=== PATIENT | male | born 1940 | race Caucasian/White ===

== ENCOUNTER 2021-05-11 15:12 | Observation (INO) | payer MEDICARE ==
--- NOTE | 2021-05-11 15:27 | ERPHSYRPT ---
- History of Present Illness Time Seen by Provider: 05/11/21 15:55 Source: patient Physician History: Patient is a 81-year-old male presents to our ED for evaluations of acute loss of vision left eye. Symptoms started approximately 2 hours prior to arrival. Patient states last week he lost his hearing. Patient was evaluated and diagnosed with an ear infection. Patient was treated with antibiotics for an inner ear. Patient completed his antibiotic course. Patient has been experiencing a headache and dizziness. No chest pain or shortness of breath. No nausea vomiting or diaphoresis. No trauma. No fever. No neck pain. Symptoms are constant. Symptoms are moderate in intensity. No specific worsening improving factors. Patient voices no other complaints concerns at this time. Timing/Duration: today Severity: moderate Modifying Factors: Improves With: nothing Associated Symptoms: headaches, other (Dizziness, loss of hearing x1 week), No syncope, No seizure Allergies/Adverse Reactions: No Known Drug Allergies Allergy (Verified 05/11/21 15:29) Home Medications: Albuterol 2.5 mg/3 ml Neb [Proventil 2.5 mg/3 ml Neb] 1 puff QID 01/23/12 [History] Fluticasone/Salmeterol [Advair 100-50 Diskus] 1 each IH BID 01/24/12 [History] Ipratropium/Albuterol Sulfate [Combivent Respimat Common Canister] 1 puff IH BID 03/26/16 [History] Hx Tetanus, Diphtheria Vaccination/Date Given: Yes (UNKNOWN) Hx Influenza Vaccination/Date Given: Yes Hx Pneumococcal Vaccination/Date Given: No - Review of Systems Constitutional: No Symptoms, No Fever, No Chills Eyes: No Symptoms Ears, Nose, & Throat: No Symptoms Respiratory: No Symptoms, No Cough, No Dyspnea Cardiac: No Symptoms, No Chest Pain, No Edema, No Syncope Abdominal/Gastrointestinal: No Symptoms, No Abdominal Pain, No Nausea, No Vomiting, No Diarrhea Genitourinary Symptoms: No Symptoms, No Dysuria Musculoskeletal: No Symptoms, No Back Pain, No Neck Pain Skin: No Symptoms, No Rash Neurological: No Symptoms, No Dizziness, No Focal Weakness, No Sensory Changes Psychological: No Symptoms Endocrine: No Symptoms, Excessive Sweating Immunological/Allergic: No Symptoms All Other Systems: Reviewed and Negative - Past Medical History Pertinent Past Medical History: Yes Neurological History: No Pertinent History ENT History: Other Cardiac History: Aneurysm Respiratory History: COPD Endocrine Medical History: No Pertinent History Musculoskeletal History: No Pertinent History GI Medical History: No Pertinent History History: No Pertinent History Psycho-Social History: No Pertinent History Male Reproductive Disorders: Prostate Problems Other Medical History: abdominal anurysem - Past Surgical History Past Surgical History: Yes Neuro Surgical History: No Pertinent History Cardiac: No Pertinent History Respiratory: Other Gastrointestinal: No Pertinent History Genitourinary: Other Musculoskeletal: Orthopedic Surgery, Other Male Surgical History: No Pertinent History Other Surgical History: kidney stone removed, transposition of left ulnar nerve. rotator cuff repair of left shoulder; copd - Social History Smoking Status: Former smoker Exposure to second hand smoke: No Drug Use: none Patient Lives Alone: Yes - Nursing Vital Signs Nursing Vital Signs: Initial Vital Signs O2 Sat by Pulse Oximetry 97 05/11/21 15:48 Pain Scale Pain Intensity 0 - Physical Exam General Appearance: no apparent distress, alert Eye Exam: PERRL/EOMI, eyes nml inspection Ears, Nose, Throat Exam: normal ENT inspection, TMs normal, pharynx normal, moist mucous membranes Neck Exam: normal inspection, non-tender, supple, full range of motion Respiratory Exam: normal breath sounds, lungs clear, airway intact, No re spiratory distress Cardiovascular Exam: regular rate/rhythm, normal heart sounds, normal peripheral pulses Gastrointestinal/Abdomen Exam: soft, normal bowel sounds, No tenderness, No mass Back Exam: normal inspection, normal range of motion, No CVA tenderness, No vertebral tenderness Extremity Exam: normal inspection, normal range of motion, pelvis stable Neurologic Exam: alert, oriented x 3, cooperative, normal mood/affect, sensation nml, No motor deficits Skin Exam: normal color, warm, dry, No rash Lymphatic Exam: No adenopathy SpO2 Interpretation: normal SpO2: 97 O2 Delivery: Room Air - Course Nursing assessment & vital signs reviewed: Yes EKG Interpreted by Me: RATE (65), Sinus Rhythm, NORMAL AXIS, NORMAL INTERVALS - Radiology Exams Other X-ray Interpretation: Teleradiologist Report (CT angio neck:no comps. Right and mid left carotid bulb calcified plaques without critical stenosis or obstruction. Normal CTA vertebral arteries with dominant left vertebral artery. Osteopenia. Multilevel degenerative disc disease and emphysema.) - CT Exams Head CT Interpretation: Tele-radiologist Report (Negative CT head without contrast exam) Other CT Interpretation: Tele-radiologist Report (CT angio head. No comps. Mild scattered arteriosclerotic disease both ICA without critical stenosis obstruction or AV malformation. 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 Remaining CTA [place] of [place] negative) Ordered Tests: Active Orders 24 hr Category Date Time Status Mechanical Designer STAT Care 05/11/21 15:29 Active EKG-ER Only STAT Care 05/11/21 15:28 Active IV Insertion STAT Care 05/11/21 15:28 Active Pulse Oximetry (ED) STAT Care 05/11/21 15:28 Active Consult Neurology STAT Cons 05/11/21 16:[address] ANGIOGRAPHY NECK [CT] Stat Exams 05/11/21 16:41 Taken CTA HEAD W AND/OR WO CONTRAST [CT] Stat Exams 05/11/21 16:40 Taken HEAD WITHOUT CONTRAST [CT] Routine Exams 05/11/21 15:25 Completed CBC W DIFF Stat Lab 05/11/21 15:40 Completed CMP Stat Lab 05/11/21 15:40 Completed CULTURE,URINE Stat Lab 05/11/21 17:40 Received PROTIME WITH INR Stat Lab 05/11/21 15:40 Completed PTT Stat Lab 05/11/21 15:40 Completed TROPONIN Q3H Lab 05/11/21 15:40 Completed TROPONIN Q3H Lab 05/11/21 18:21 Completed TROPONIN Q3H Lab 05/11/21 21:30 Ordered TROPONIN Q3H Lab 05/12/21 00:30 Ordered TROPONIN Q3H Lab 05/12/21 03:30 Ordered Transfer Order Routine Transfer 05/11/21 Ordered Medication Summary Generic Name Dose Route Start Last Admin Trade Name Freq PRN Reason Stop Dose Admin Aspirin 324 mg 05/11/21 19:23 Aspirin 81 Mg Tab.Chew PO 05/11/21 19:24 STAT ONE Sodium Chloride 1,000 mls @ 100 mls/hr 05/11/21 15:30 05/11/21 15:36 Sodium Chloride 0.9% 1000 Ml IV 06/10/21 15:29 100 mls/hr .Q10H ROCAEL Administration Ceftriaxone Sodium/Dextrose 1 g in 50 mls @ 100 mls/hr 05/12/21 10:00 Rocephin 1 Gm-D5w 50 Ml Bag IV 05/15/21 09:59 Q24H10 ROCAEL Lab/Rad Data: Laboratory Result Diagrams 05/11/21 15:40 04/06/22 15:40 Laboratory Results 05/11/21 05/11/21 05/11/21 Range/Units 18:21 17:40 17:29 WBC (4.0-10.5) K/mm3 RBC (4.1-5.6) M/mm3 Hgb (12.5-18.0) gm/dl Hct (42-50) % MCV (78-100) fl MCH (26-32) pg MCHC (32-36) g/dl RDW (11.5-14.0) % Plt Count (150-450) K/mm3 MPV (7.5-11.0) fl Gran % (36.0-66.0) % Eos # (Auto) (0-0.5) Absolute Lymphs (auto) (1.0-4.6) Absolute Monos (auto) (0.0-1.3) Lymphocytes % (24.0-44.0) % Monocytes % (0.0-12.0) % Eosinophils % (0.00-5.0) % Basophils % (0.0-0.4) % Absolute Granulocytes (1.4-6.9) Basophils # (0-0.4) PT (9.4-12.5) SECONDS INR (0.8-3.0) APTT (25.1-36.5) SECONDS Sodium (137-145) mmol/L Potassium (3.5-5.1) mmol/L Chloride (98-107) mmol/L Carbon Dioxide (22-30) mmol/L Anion Gap (5-15) MEQ/L BUN (9-20) mg/dL Creatinine (0.66-1.25) mg/dL Estimated GFR ML/MIN Glucose (74-106) mg/dL Calcium (8.4-10.2) mg/dL Total Bilirubin (0.2-1.3) mg/dL AST (17-59) U/L ALT (0-50) U/L Alkaline Phosphatase (38-126) U/L Troponin I < 0.012 (0.000-0.034) ng/mL Serum Total Protein (6.3-8.2) g/dL Albumin (3.5-5.0) g/dL Urinalys Dipstick Clnc MAIN LAB Urine Color YELLOW (YELLOW) Urine Appearance CLEAR (CLEAR) Urine pH 6.5 (5-6) Ur Specific [place] 1.010 (1.005-1.025) POC Urine Protein Conf NEGATIVE (Negative) Urine Ketones NEGATIVE (NEGATIVE) Urine Nitrite POSITIVE (NEGATIVE) Urine Bilirubin NEGATIVE (NEGATIVE) Urine Urobilinogen 0.2 (0-1) mg/dL Urine Leukocytes TRACE (NEGATIVE) Urine WBC (Auto) 3-5 (0-5) /HPF Urine RBC (Auto) NONE SEEN (0-2) /HPF U Epithel Cells (Auto) RARE (FEW) /HPF Urine Bacteria (Auto) RARE (NEGATIVE) /HPF Urine RBC NEGATIVE (0-5) Sukhwinder/ul Ur Culture Indicated? YES Urine Glucose NEGATIVE (NEGATIVE) mg/dL Influenza Type A Ag NEGATIVE (NEGATIVE) Influenza Type B Ag NEGATIVE (NEGATIVE) RSV (PCR) NEGATIVE (Negative) SARS-CoV-2 (PCR) NEGATIVE (NEGATIVE) 05/11/21 05/11/21 05/11/21 Range/Units 15:40 15:40 15:40 WBC (4.0-10.5) K/mm3 RBC (4.1-5.6) M/mm3 Hgb (12.5-18.0) gm/dl Hct (42-50) % MCV (78-100) fl MCH (26-32) pg MCHC (32-36) g/dl RDW (11.5-14.0) % Plt Count (150-450) K/mm3 MPV (7.5-11.0) fl Gran % (36.0-66.0) % Eos # (Auto) (0-0.5) Absolute Lymphs (auto) (1.0-4.6) Absolute Monos (auto) (0.0-1.3) Lymphocytes % (24.0-44.0) % Monocytes % (0.0-12.0) % Eosinophils % (0.00-5.0) % Basophils % (0.0-0.4) % Absolute Granulocytes (1.4-6.9) Basophils # (0-0.4) PT 12.2 (9.4-12.5) SECONDS INR 1.03 (0.8-3.0) APTT 35.0 (25.1-36.5) SECONDS Sodium 139 (137-145) mmol/L Potassium 3.8 (3.5-5.1) mmol/L Chloride 104 (98-107) mmol/L Carbon Dioxide 24 (22-30) mmol/L Anion Gap 15.0 (5-15) MEQ/L BUN 16 (9-20) mg/dL Creatinine 0.71 (0.66-1.25) mg/dL Estimated GFR > 60.0 ML/MIN Glucose 80 (74-106) mg/dL Calcium 8.8 (8.4-10.2) mg/dL Total Bilirubin 0.60 (0.2-1.3) mg/dL AST 25 (17-59) U/L ALT 12 (0-50) U/L Alkaline Phosphatase 76 (38-126) U/L Troponin I < 0.012 (0.000-0.034) ng/mL Serum Total Protein 7.3 (6.3-8.2) g/dL Albumin 4.2 (3.5-5.0) g/dL Urinalys Dipstick Clnc Urine Color (YELLOW) Urine Appearance (CLEAR) Urine pH (5-6) Ur Specific [place] (1.005-1.025) POC Urine Protein Conf (Negative) Urine Ketones (NEGATIVE) Urine Nitrite (NEGATIVE) Urine Bilirubin (NEGATIVE) Urine Urobilinogen (0-1) mg/dL Urine Leukocytes (NEGATIVE) Urine WBC (Auto) (0-5) /HPF Urine RBC (Auto) (0-2) /HPF U Epithel Cells (Auto) (FEW) /HPF Urine Bacteria (Auto) (NEGATIVE) /HPF Urine RBC (0-5) Sukhwinder/ul Ur Culture Indicated? Urine Glucose (NEGATIVE) mg/dL Influenza Type A Ag (NEGATIVE) Influenza Type B Ag (NEGATIVE) RSV (PCR) (Negative) SARS-CoV-2 (PCR) (NEGATIVE) 05/11/21 Range/Units 15:40 WBC 7.7 (4.0-10.5) K/mm3 RBC 5.08 (4.1-5.6) M/mm3 Hgb 16.1 (12.5-18.0) gm/dl Hct 47.7 (42-50) % MCV 93.9 (78-100) fl MCH 31.7 (26-32) pg MCHC 33.8 (32-36) g/dl RDW 13.2 (11.5-14.0) % Plt Count 259 (150-450) K/mm3 MPV 8.6 (7.5-11.0) fl Gran % 66.7 H (36.0-66.0) % Eos # (Auto) 0.46 (0-0.5) Absolute Lymphs (auto) 1.42 (1.0-4.6) Absolute Monos (auto) 0.60 (0.0-1.3) Lymphocytes % 18.5 L (24.0-44.0) % Monocytes % 7.8 (0.0-12.0) % Eosinophils % 6.0 H (0.00-5.0) % Basophils % 1.0 (0.0-0.4) % Absolute Granulocytes 5.11 (1.4-6.9) Basophils # 0.08 (0-0.4) PT (9.4-12.5) SECONDS INR (0.8-3.0) APTT (25.1-36.5) SECONDS Sodium (137-145) mmol/L Potassium (3.5-5.1) mmol/L Chloride (98-107) mmol/L Carbon Dioxide (22-30) mmol/L Anion Gap (5-15) MEQ/L BUN (9-20) mg/dL Creatinine (0.66-1.25) mg/dL Estimated GFR ML/MIN Glucose (74-106) mg/dL Calcium (8.4-10.2) mg/dL Total Bilirubin (0.2-1.3) mg/dL AST (17-59) U/L ALT (0-50) U/L Alkaline Phosphatase (38-126) U/L Troponin I (0.000-0.034) ng/mL Serum Total Protein (6.3-8.2) g/dL Albumin (3.5-5.0) g/dL Urinalys Dipstick Clnc Urine Color (YELLOW) Urine Appearance (CLEAR) Urine pH (5-6) Ur Specific [place] (1.005-1.025) POC Urine Protein Conf (Negative) Urine Ketones (NEGATIVE) Urine Nitrite (NEGATIVE) Urine Bilirubin (NEGATIVE) Urine Urobilinogen (0-1) mg/dL Urine Leukocytes (NEGATIVE) Urine WBC (Auto) (0-5) /HPF Urine RBC (Auto) (0-2) /HPF U Epithel Cells (Auto) (FEW) /HPF Urine Bacteria (Auto) (NEGATIVE) /HPF Urine RBC (0-5) Sukhwinder/ul Ur Culture Indicated? Urine Glucose (NEGATIVE) mg/dL Influenza Type A Ag (NEGATIVE) Influenza Type B Ag (NEGATIVE) RSV (PCR) (Negative) SARS-CoV-2 (PCR) (NEGATIVE) - Progress Progress: improved Progress Note: Negative CT head without contrast exam. telemetry neurologist advised CTA head and neck. Family/patient declined TPA. 05/11/21 16:50 05/11/21 16:56 Discussed with : Trever Will see patient in: hospital (observation) Counseled pt/family regarding: lab results, diagnosis, rad results - Departure Departure Disposition: Transfer Clinical Impression: Stroke, Urinary tract infection, Osteopenia Condition: Stable Critical Care Time: No Referrals: CHRIS DAVIS MD [Primary Care Provider] - Follow up/PCP as directed
--- NOTE | 2021-05-11 15:34 | XRAY ---
Indication: Stroke like symptoms. Multiple contiguous axial images obtained through the head without contrast. Comparison: None Age-appropriate global atrophy. No acute intracranial hemorrhage, abnormal extra-axial fluid collection, or mass effect. Fourth ventricle is midline without hydrocephalus. Bony calvarium intact. Visualized paranasal sinuses and mastoid air cells are clear. Impression: Negative CT head without contrast exam.
[2021-05-11] MEDS: Sodium Chloride 0.9% 1000 ML 1,000 ML IV SCH ×2 (15:36→20:20)
[2021-05-11 15:50] LABS: Absolute Neutrophil Ct (ANC) 5.11 (1.4-6.9); Basophil (Absolute #) 0.08 (0-0.4); Eosinophil (Absolute #) 0.46 (0-0.5); Hematocrit 47.7 % (42-50); Hemoglobin 16.1 gm/dl (12.5-18.0); Lymphocyte (Absolute #) 1.42 (1.0-4.6); Lymphocytes % 18.5 % (24.0-44.0); Mean Cell Volume 93.9 fl (78-100); Mean Corpuscular Hemoglobin 31.7 pg (26-32); Mean Corpuscular Hgb Concent. 33.8 g/dl (32-36); Mean Platelet Volume 8.6 fl (7.5-11.0); Monocytes % 7.8 % (0.0-12.0); Neutrophil % 66.7 % (36.0-66.0); Platelet Count 259 K/mm3 (150-450); Red Blood Count 5.08 M/mm3 (4.1-5.6); Red Cell Distribution Width 13.2 % (11.5-14.0); White Blood Count 7.7 K/mm3 (4.0-10.5)
[2021-05-11 16:00] LABS: INR 1.03 (0.8-3.0); PROTIME 12.2 SECONDS (9.4-12.5)
[2021-05-11 16:07] LABS: ALBUMIN 4.2 g/dL (3.5-5.0); ALKALINE PHOSPHATASE 76 U/L (38-126); BLOOD UREA NITROGEN 16 mg/dL (9-20); CHLORIDE 104 mmol/L (98-107); Calcium 8.8 mg/dL (8.4-10.2); Carbon Dioxide 24 mmol/L (22-30); Creatinine 1 0.71 mg/dL (0.66-1.25); EST GLOMERULAR FILTRATION RATE > 60.0 ML/MIN; Glucose 80 mg/dL (74-106); Potassium 3.8 mmol/L (3.5-5.1); SGOT/AST 25 U/L (17-59); SGPT/ALT 12 U/L (0-50); SODIUM 139 mmol/L (137-145); Total Protein 7.3 g/dL (6.3-8.2)
[2021-05-11 17:56] LABS: Appearance CLEAR (CLEAR); Bilirubin NEGATIVE (NEGATIVE); Dipstick done @ ? MAIN LAB; Glucose NEGATIVE (NEGATIVE); Ketones NEGATIVE (NEGATIVE); Nitrite POSITIVE (NEGATIVE); Ph 6.5 (5-6); Protein,Urine Dip NEGATIVE (Negative); RBC NEGATIVE Ery/ul (0-5); Urobilinogen 0.2 mg/dL (0-1)
[2021-05-11 18:03] LABS: Bacteria RARE /HPF (NEGATIVE); Epithelial Cells RARE /HPF (FEW)
[2021-05-11 18:06] LABS: RBC NONE SEEN /HPF (0-2)
[2021-05-11 18:07] LABS: Urine Cultured Indicated? YES
[2021-05-11 18:23] LABS: INFLUENZA A NEGATIVE (NEGATIVE); INFLUENZA B NEGATIVE (NEGATIVE); RESPIRATORY SYNCTIAL VIRUS NEGATIVE (Negative); SARS-CoV-2 Xpert Express NEGATIVE (NEGATIVE)
[2021-05-11] MEDS ORDERED: BABY ASPIRIN 81 MG CHEW PO ONE (19:23)
[2021-05-11] MEDS ORDERED: MAALOX ES 30 ML UNIT DOSE PO PRN (20:05)
[2021-05-11] MEDS ORDERED: MILK OF MAGNESIA 30 ML PO PRN (20:05)
[2021-05-11] MEDS ORDERED: Zofran 4 MG/2 ML VIAL IV PRN (20:05)
[2021-05-11] MEDS ORDERED: TYLENOL 325 MG PO PRN (20:05)
[2021-05-11] MEDS ORDERED: Senokot-S Tablet PO PRN (20:05)
[2021-05-11] MEDS ORDERED: ECOTRIN 81 MG PO ONE ×3 (21:34→21:52)
--- NOTE | 2021-05-11 21:40 | PCM.HP ---
History of Present Illness - Chief Complaint Chief Complaint: weakness for 1 day, loss of vision left eye History of Present Illness: is a 81 year old male.presents to our ED for evaluations of acute loss of vision left eye. Symptoms started approximately 2 hours prior to arrival. Patient states last week he lost his hearing. Patient was evaluated and diagnosed with an ear infection. Patient was treated with antibiotics for an inner ear. Patient completed his antibiotic course. Patient has been experiencing a headache and dizziness. No chest pain or shortness of breath. No nausea vomiting or diaphoresis. No trauma. No fever. No neck pain. Symptoms are constant. Symptoms are moderate in intensity. No specific worsening improving factors. Patient voices no other complaints concerns at this time. - Review of Systems Constitutional: Weakness, No Fever, No Chills Eyes: No Symptoms, Vision Changes (left eye) Ears, Nose, & Throat: No Symptoms, Hearing Changes Respiratory: No Cough, No Short Of Breath Cardiac: No Chest Pain, No Edema, No Syncope Abdominal/Gastrointestinal: No Abdominal Pain, No Nausea, No Vomiting, No Diarrhea Genitourinary Symptoms: No Dysuria Musculoskeletal: No Back Pain, No Neck Pain Skin: No Rash Neurological: No Dizziness, No Focal Weakness, No Sensory Changes Psychological: No Symptoms Endocrine: No Symptoms Hematologic/Lymphatic: No Symptoms Immunological/Allergic: No Symptoms Medications & Allergies Home Medications: Home Medication List Albuterol 2.5 mg/3 ml Neb [Proventil 2.5 mg/3 ml Neb] 1 puff QID 01/23/12 [History Confirmed 05/11/21] Fluticasone/Salmeterol [Advair 100-50 Diskus] 1 each IH BID 01/24/12 [History Confirmed 05/11/21] Ipratropium/Albuterol Sulfate [Combivent Respimat Common Canister] 1 puff IH BID 03/26/16 [History Confirmed 05/11/21] Allergies/Adverse Reactions: Allergies Allergy/AdvReac Type Severity Reaction Status Date / Time No Known Drug Allergies Allergy Verified 05/11/21 15:29 - Past Medical History Past Medical History: Yes Neurological History: Stroke ENT History: Cataracts, Other Cardiac History: Aneurysm Respiratory History: COPD Endocrine Medical History: No Pertinent History Musculoskelatal History: Arthritis, Fractures GI Medical History: No Pertinent History History: No Pertinent History, Other Pyscho-Social History: No Pertinent History Male Reproductive Disorders: Prostate Problems Comment: abdominal anurysem - Past Surgical History Past Surgical History: Yes Neuro Surgical History: No Pertinent History Cardiac History: No Pertinent History Respiratory Surgery: No Pertinent History GI Surgical History: No Pertinent History Genitourinary Surgical Hx: Other Musculskeletal Surgical Hx: Orthopedic Surgery, Other Male Surgical History: No Pertinent History Other Surgical History: kidney stone removed, transposition of left ulnar nerve. rotator cuff repair of left shoulder; copd - Social History Smoking Status: Former smoker Exposure to second hand smoke: No Alcohol: Daily Drug Use: none - Physical Exam Vital Signs: Vital Signs - 24 hr Temp Pulse Resp BP Pulse Ox 05/11/21 20:26 97.7 F 54 L 16 188/87 97 05/11/21 19:24 97 05/11/21 19:00 60 14 182/87 98 05/11/21 18:48 65 22 178/92 96 05/11/21 16:47 74 17 198/105 98 05/11/21 15:53 71 16 180/60 97 05/11/21 15:48 97 General Appearance: no apparent distress, alert Neurologic Exam: alert, oriented x 3, cooperative, normal mood/affect, nml cerebellar function, nml station & gait, sensation nml, No motor deficits Eye Exam: PERRL/EOMI, eyes nml inspection, post op pupil defect (L) Ears, Nose, Throat Exam: normal ENT inspection, TMs normal, pharynx normal, moist mucous membranes Neck Exam: normal inspection, non-tender, supple, full range of motion Respiratory Exam: normal breath sounds, lungs clear, No respiratory distress Cardiovascular Exam: regular rate/rhythm, normal heart sounds, normal peripheral pulses Gastrointestinal/Abdomen Exam: soft, normal bowel sounds, No tenderness, No mass Back Exam: normal inspection, normal range of motion, No CVA tenderness, No vertebral tenderness Extremity Exam: normal inspection, normal range of motion, pelvis stable Skin Exam: normal color, warm, dry, No rash Lymphatic Exam: No adenopathy Results - Labs Lab/Micro Results: Lab Results-Last 24 Hours 05/11/21 05/11/21 05/11/21 Range/Units 15:40 15:40 15:40 WBC 7.7 (4.0-10.5) K/mm3 RBC 5.08 (4.1-5.6) M/mm3 Hgb 16.1 (12.5-18.0) gm/dl Hct 47.7 (42-50) % MCV 93.9 (78-100) fl MCH 31.7 (26-32) pg MCHC 33.8 (32-36) g/dl RDW 13.2 (11.5-14.0) % Plt Count 259 (150-450) K/mm3 MPV 8.6 (7.5-11.0) fl Gran % 66.7 H (36.0-66.0) % Eos # (Auto) 0.46 (0-0.5) Absolute Lymphs (auto) 1.42 (1.0-4.6) Absolute Monos (auto) 0.60 (0.0-1.3) Lymphocytes % 18.5 L (24.0-44.0) % Monocytes % 7.8 (0.0-12.0) % Eosinophils % 6.0 H (0.00-5.0) % Basophils % 1.0 (0.0-0.4) % Absolute Granulocytes 5.11 (1.4-6.9) Basophils # 0.08 (0-0.4) PT 12.2 (9.4-12.5) SECONDS INR 1.03 (0.8-3.0) APTT 35.0 (25.1-36.5) SECONDS Sodium 139 (137-145) mmol/L Potassium 3.8 (3.5-5.1) mmol/L Chloride 104 (98-107) mmol/L Carbon Dioxide 24 (22-30) mmol/L Anion Gap 15.0 (5-15) MEQ/L BUN 16 (9-20) mg/dL Creatinine 0.71 (0.66-1.25) mg/dL Estimated GFR > 60.0 ML/MIN Glucose 80 (74-106) mg/dL Calcium 8.8 (8.4-10.2) mg/dL Total Bilirubin 0.60 (0.2-1.3) mg/dL AST 25 (17-59) U/L ALT 12 (0-50) U/L Alkaline Phosphatase 76 (38-126) U/L Troponin I (0.000-0.034) ng/mL Serum Total Protein 7.3 (6.3-8.2) g/dL Albumin 4.2 (3.5-5.0) g/dL Urinalys Dipstick Clnc Urine Color (YELLOW) Urine Appearance (CLEAR) Urine pH (5-6) Ur Specific [place] (1.005-1.025) POC Urine Protein Conf (Negative) Urine Ketones (NEGATIVE) Urine Nitrite (NEGATIVE) Urine Bilirubin (NEGATIVE) Urine Urobilinogen (0-1) mg/dL Urine Leukocytes (NEGATIVE) Urine WBC (Auto) (0-5) /HPF Urine RBC (Auto) (0-2) /HPF U Epithel Cells (Auto) (FEW) /HPF Urine Bacteria (Auto) (NEGATIVE) /HPF Urine RBC (0-5) Sukhwinder/ul Ur Culture Indicated? Urine Glucose (NEGATIVE) mg/dL Influenza Type A Ag (NEGATIVE) Influenza Type B Ag (NEGATIVE) RSV (PCR) (Negative) SARS-CoV-2 (PCR) (NEGATIVE) 05/11/21 05/11/21 05/11/21 Range/Units 15:40 17:29 17:40 WBC (4.0-10.5) K/mm3 RBC (4.1-5.6) M/mm3 Hgb (12.5-18.0) gm/dl Hct (42-50) % MCV (78-100) fl MCH (26-32) pg MCHC (32-36) g/dl RDW (11.5-14.0) % Plt Count (150-450) K/mm3 MPV (7.5-11.0) fl Gran % (36.0-66.0) % Eos # (Auto) (0-0.5) Absolute Lymphs (auto) (1.0-4.6) Absolute Monos (auto) (0.0-1.3) Lymphocytes % (24.0-44.0) % Monocytes % (0.0-12.0) % Eosinophils % (0.00-5.0) % Basophils % (0.0-0.4) % Absolute Granulocytes (1.4-6.9) Basophils # (0-0.4) PT (9.4-12.5) SECONDS INR (0.8-3.0) APTT (25.1-36.5) SECONDS Sodium (137-145) mmol/L Potassium (3.5-5.1) mmol/L Chloride (98-107) mmol/L Carbon Dioxide (22-30) mmol/L Anion Gap (5-15) MEQ/L BUN (9-20) mg/dL Creatinine (0.66-1.25) mg/dL Estimated GFR ML/MIN Glucose (74-106) mg/dL Calcium (8.4-10.2) mg/dL Total Bilirubin (0.2-1.3) mg/dL AST (17-59) U/L ALT (0-50) U/L Alkaline Phosphatase (38-126) U/L Troponin I < 0.012 (0.000-0.034) ng/mL Serum Total Protein (6.3-8.2) g/dL Albumin (3.5-5.0) g/dL Urinalys Dipstick Clnc MAIN LAB Urine Color YELLOW (YELLOW) Urine Appearance CLEAR (CLEAR) Urine pH 6.5 (5-6) Ur Specific [place] 1.010 (1.005-1.025) POC Urine Protein Conf NEGATIVE (Negative) Urine Ketones NEGATIVE (NEGATIVE) Urine Nitrite POSITIVE (NEGATIVE) Urine Bilirubin NEGATIVE (NEGATIVE) Urine Urobilinogen 0.2 (0-1) mg/dL Urine Leukocytes TRACE (NEGATIVE) Urine WBC (Auto) 3-5 (0-5) /HPF Urine RBC (Auto) NONE SEEN (0-2) /HPF U Epithel Cells (Auto) RARE (FEW) /HPF Urine Bacteria (Auto) RARE (NEGATIVE) /HPF Urine RBC NEGATIVE (0-5) Sukhwinder/ul Ur Culture Indicated? YES Urine Glucose NEGATIVE (NEGATIVE) mg/dL Influenza Type A Ag NEGATIVE (NEGATIVE) Influenza Type B Ag NEGATIVE (NEGATIVE) RSV (PCR) NEGATIVE (Negative) SARS-CoV-2 (PCR) NEGATIVE (NEGATIVE) 05/11/21 Range/Units 18:21 WBC (4.0-10.5) K/mm3 RBC (4.1-5.6) M/mm3 Hgb (12.5-18.0) gm/dl Hct (42-50) % MCV (78-100) fl MCH (26-32) pg MCHC (32-36) g/dl RDW (11.5-14.0) % Plt Count (150-450) K/mm3 MPV (7.5-11.0) fl Gran % (36.0-66.0) % Eos # (Auto) (0-0.5) Absolute Lymphs (auto) (1.0-4.6) Absolute Monos (auto) (0.0-1.3) Lymphocytes % (24.0-44.0) % Monocytes % (0.0-12.0) % Eosinophils % (0.00-5.0) % Basophils % (0.0-0.4) % Absolute Granulocytes (1.4-6.9) Basophils # (0-0.4) PT (9.4-12.5) SECONDS INR (0.8-3.0) APTT (25.1-36.5) SECONDS Sodium (137-145) mmol/L Potassium (3.5-5.1) mmol/L Chloride (98-107) mmol/L Carbon Dioxide (22-30) mmol/L Anion Gap (5-15) MEQ/L BUN (9-20) mg/dL Creatinine (0.66-1.25) mg/dL Estimated GFR ML/MIN Glucose (74-106) mg/dL Calcium (8.4-10.2) mg/dL Total Bilirubin (0.2-1.3) mg/dL AST (17-59) U/L ALT (0-50) U/L Alkaline Phosphatase (38-126) U/L Troponin I < 0.012 (0.000-0.034) ng/mL Serum Total Protein (6.3-8.2) g/dL Albumin (3.5-5.0) g/dL Urinalys Dipstick Clnc Urine Color (YELLOW) Urine Appearance (CLEAR) Urine pH (5-6) Ur Specific [place] (1.005-1.025) POC Urine Protein Conf (Negative) Urine Ketones (NEGATIVE) Urine Nitrite (NEGATIVE) Urine Bilirubin (NEGATIVE) Urine Urobilinogen (0-1) mg/dL Urine Leukocytes (NEGATIVE) Urine WBC (Auto) (0-5) /HPF Urine RBC (Auto) (0-2) /HPF U Epithel Cells (Auto) (FEW) /HPF Urine Bacteria (Auto) (NEGATIVE) /HPF Urine RBC (0-5) Sukhwinder/ul Ur Culture Indicated? Urine Glucose (NEGATIVE) mg/dL Influenza Type A Ag (NEGATIVE) Influenza Type B Ag (NEGATIVE) RSV (PCR) (Negative) SARS-CoV-2 (PCR) (NEGATIVE) - Radiology Impressions Radiology Exams & Impressions: Radiology Procedures Category Date Time Status CT ANGIOGRAPHY NECK [CT] Stat Exams 05/11/21 16:41 Taken CTA HEAD W AND/OR WO CONTRAST [CT] Stat Exams 05/11/21 16:40 Taken HEAD WITHOUT CONTRAST [CT] Routine Exams 05/11/21 15:25 Completed - Other Procedures and Tests Respiratory Therapy 05/11/21 20:05 EKG Q8HX2,QAMX3,PRN Assessment/Plan (1) Vision loss, left eye Current Visit: Yes Status: Acute Assessment & Plan: Chief Complaint Diagnosis Stroke Allergies Allergy/AdvReac Type Severity Reaction Status Date / Time No Known Drug Allergies Allergy Verified 05/11/21 15:29 Vital Signs (Last 24 hours) Temp Pulse Resp BP Pulse Ox 05/11/21 20:26 97.7 F 54 L 16 188/87 97 05/11/21 19:24 97 05/11/21 19:00 60 14 182/87 98 05/11/21 18:48 65 22 178/92 96 05/11/21 16:47 74 17 198/105 98 05/11/21 15:53 71 16 180/60 97 05/11/21 15:48 97 Current Medications Generic Name Dose Route Start Last Admin Trade Name Freq PRN Reason Stop Dose Admin Acetaminophen 650 mg 05/11/21 20:05 Acetaminophen 325 Mg Tablet PO 06/10/21 20:04 Q4H PRN PRN PAIN AND/OR FEVER Al Hydrox/Mg Hydrox/Simethicone 30 ml 05/11/21 20:05 Mag Hydrox/Al Hydrox/Simeth 30 Ml Udcup PO 06/10/21 20:04 Q4H PRN PRN INDIGESTION Sodium Chloride 1,000 mls @ 100 mls/hr 05/11/21 15:30 05/11/21 20:20 Sodium Chloride 0.9% 1000 Ml IV 06/10/21 15:29 100 mls/hr .Q10H ROCAEL Administration Ceftriaxone Sodium/Dextrose 1 g in 50 mls @ 100 mls/hr 05/12/21 10:00 Rocephin 1 Gm-D5w 50 Ml Bag IV 05/15/21 09:59 Q24H10 ROCAEL Magnesium Hydroxide 30 - 60 ml 05/11/21 20:05 Magnesium Hydroxide 30 Ml Udcup PO 06/10/21 20:04 QDP PRN CONSTIPATION Ondansetron HCl 4 mg 05/11/21 20:05 Ondansetron Hcl 4 Mg/2 Ml Vial IV 06/10/21 20:04 Q4H PRN PRN NAUSEA/VOMITING Senna/Docusate Sodium 2 udtab 05/11/21 20:05 Senna/Docusate Sodium 1 Udtab Tablet PO 06/10/21 20:04 BID PRN PRN CONSTIPATION Discontinued Medications Generic Name Dose Route Start Last Admin Trade Name Freq PRN Reason Stop Dose Admin Aspirin 324 mg 05/11/21 19:23 Aspirin 81 Mg Tab.Chew PO 05/11/21 19:24 STAT ONE Aspirin Confirm 05/11/21 21:34 Aspirin 81 Mg Tablet.Ec Administered 05/11/21 21:35 Dose 243 mg PO .STK-MED ONE Intake & Output (Last 24 hours) 05/09/21 05/10/21 05/11/21 05/12/21 11:59 11:59 11:59 11:59 Weight 60.6 kg Microbiology Results (Last 24 hours) 05/11/21 17:40 Urine, Void Urine Culture - Pending Laboratory Results (Last 24 hours) 05/11/21 05/11/21 05/11/21 18:21 17:40 17:29 WBC RBC Hgb Hct MCV MCH MCHC RDW Plt Count MPV Gran % Eos # (Auto) Absolute Lymphs (auto) Absolute Monos (auto) Lymphocytes % Monocytes % Eosinophils % Basophils % Absolute Granulocytes Basophils # PT INR APTT Sodium Potassium Chloride Carbon Dioxide Anion Gap BUN Creatinine Estimated GFR Glucose Calcium Total Bilirubin AST ALT Alkaline Phosphatase Troponin I < 0.012 Serum Total Protein Albumin Urinalys Dipstick Clnc MAIN LAB Urine Color YELLOW Urine Appearance CLEAR Urine pH 6.5 Ur Specific [place] 1.010 POC Urine Protein Conf NEGATIVE Urine Ketones NEGATIVE Urine Nitrite POSITIVE Urine Bilirubin NEGATIVE Urine Urobilinogen 0.2 Urine Leukocytes TRACE Urine WBC (Auto) 3-5 Urine RBC (Auto) NONE SEEN U Epithel Cells (Auto) RARE Urine Bacteria (Auto) RARE Urine RBC NEGATIVE Ur Culture Indicated? YES Urine Glucose NEGATIVE Influenza Type A Ag NEGATIVE Influenza Type B Ag NEGATIVE RSV (PCR) NEGATIVE SARS-CoV-2 (PCR) NEGATIVE 05/11/21 05/11/21 05/11/21 15:40 15:40 15:40 WBC RBC Hgb Hct MCV MCH MCHC RDW Plt Count MPV Gran % Eos # (Auto) Absolute Lymphs (auto) Absolute Monos (auto) Lymphocytes % Monocytes % Eosinophils % Basophils % Absolute Granulocytes Basophils # PT 12.2 INR 1.03 APTT 35.0 Sodium 139 Potassium 3.8 Chloride 104 Carbon Dioxide 24 Anion Gap 15.0 BUN 16 Creatinine 0.71 Estimated GFR > 60.0 Glucose 80 Calcium 8.8 Total Bilirubin 0.60 AST 25 ALT 12 Alkaline Phosphatase 76 Troponin I < 0.012 Serum Total Protein 7.3 Albumin 4.2 Urinalys Dipstick Clnc Urine Color Urine Appearance Urine pH Ur Specific [place] POC Urine Protein Conf Urine Ketones Urine Nitrite Urine Bilirubin Urine Urobilinogen Urine Leukocytes Urine WBC (Auto) Urine RBC (Auto) U Epithel Cells (Auto) Urine Bacteria (Auto) Urine RBC Ur Culture Indicated? Urine Glucose Influenza Type A Ag Influenza Type B Ag RSV (PCR) SARS-CoV-2 (PCR) 05/11/21 15:40 WBC 7.7 RBC 5.08 Hgb 16.1 Hct 47.7 MCV 93.9 MCH 31.7 MCHC 33.8 RDW 13.2 Plt Count 259 MPV 8.6 Gran % 66.7 H Eos # (Auto) 0.46 Absolute Lymphs (auto) 1.42 Absolute Monos (auto) 0.60 Lymphocytes % 18.5 L Monocytes % 7.8 Eosinophils % 6.0 H Basophils % 1.0 Absolute Granulocytes 5.11 Basophils # 0.08 PT INR APTT Sodium Potassium Chloride Carbon Dioxide Anion Gap BUN Creatinine Estimated GFR Glucose Calcium Total Bilirubin AST ALT Alkaline Phosphatase Troponin I Serum Total Protein Albumin Urinalys Dipstick Clnc Urine Color Urine Appearance Urine pH Ur Specific [place] POC Urine Protein Conf Urine Ketones Urine Nitrite Urine Bilirubin Urine Urobilinogen Urine Leukocytes Urine WBC (Auto) Urine RBC (Auto) U Epithel Cells (Auto) Urine Bacteria (Auto) Urine RBC Ur Culture Indicated? Urine Glucose Influenza Type A Ag Influenza Type B Ag RSV (PCR) SARS-CoV-2 (PCR) Orders (Last 24 hours) Category Date Time Status Bedrest with BRP/BSC ROUTINE Activity 05/11/21 20:05 Active Test Carrier STAT Care 05/11/21 15:29 Completed Code Status Order ROUTINE Care 05/11/21 20:05 Active EKG-ER Only STAT Care 05/11/21 15:28 Completed IV Care Q6H Care 05/11/21 20:05 Active IV Insertion STAT Care 05/11/21 15:28 Completed Implement Chest Pain Pathway ROUTINE Care 05/11/21 20:[address] in Observation ROUTINE Care 05/11/21 20:05 Active Pulse Oximetry (ED) STAT Care 05/11/21 15:28 Completed Micheal Serrato Apply ROUTINE Care 05/11/21 20:05 Active Telemetry q6 Care 05/11/21 20:05 Active Weight,Daily 0600 Care 05/11/21 20:05 Active Consult Neurology STAT Cons 05/11/21 16:51 Completed NPO Diet 05/12/21 00:[address] ANGIOGRAPHY NECK [CT] Stat Exams 05/11/21 16:41 Taken CTA HEAD W AND/OR WO CONTRAST [CT] Stat Exams 05/11/21 16:40 Taken HEAD WITHOUT CONTRAST [CT] Routine Exams 05/11/21 15:25 Completed BMP Routine Lab 05/11/21 20:59 Ordered CBC Routine Lab 05/11/21 20:59 Ordered CBC W DIFF Stat Lab 05/11/21 15:40 Completed CMP Stat Lab 05/11/21 15:40 Completed CULTURE,URINE Stat Lab 05/11/21 17:40 Received LIPID PROFILE AM.LAB Lab 05/12/21 04:00 Ordered PREALBUMIN Routine Lab 05/11/21 20:59 Ordered PROTIME WITH INR Stat Lab 05/11/21 15:40 Completed PTT Stat Lab 05/11/21 15:40 Completed TROPONIN Q3H Lab 05/11/21 15:40 Completed TROPONIN Q3H Lab 05/11/21 18:21 Completed TROPONIN Q3H Lab 05/11/21 21:30 Ordered TROPONIN Q3H Lab 05/12/21 00:30 Ordered TROPONIN Q3H Lab 05/12/21 03:30 Ordered Acetaminophen 325 mg [Tylenol 325 mg] Med 05/11/21 20:05 Ordered 650 mg PO Q4H PRN PRN Aspirin 81 gm Chew [Baby Aspirin 81 mg Chew] Med 05/11/21 19:23 Discontinued 324 mg PO STAT ONE Aspirin EC 81 mg [Ecotrin 81 mg] Med 05/11/21 21:34 Discontinued 243 mg PO .STK-MED ONE Ceftriaxone 1 GM/50 ML PREMIX* [ROCEPHIN 1 Gm-D5w 50 ml Med 05/12/21 10:00 Ordered Bag] 1 g in 50 ml IV Q24H10 Mag Hydrox/Al Hydrox/Simeth [Maalox Es 30 ml Unit Med 05/11/21 20:05 Ordered Dose] 30 ml PO Q4H PRN PRN Magnesium Hydroxide 30 ml [Milk of Magnesia 30 ml Med 05/11/21 20:05 Ordered ] 30 - 60 ml PO QDP PRN NaCl 0.9% 1000 ml [Sodium Chloride 0.9% 1000 ML] 1,000 Med 05/11/21 15:30 Ordered ml IV 100 mls/hr Ondansetron HCl 4 mg/2 ml [Zofran 4 MG/2 ML VIAL] Med 05/11/21 20:05 Ordered 4 mg IV Q4H PRN PRN Senna/Docusate Sodium Tab [Senokot-S Tablet] Med 05/11/21 20:05 Ordered 2 udtab PO BID PRN PRN EKG Q8HX2,QAMX3,PRN RT 05/11/21 20:05 Active Pulse Oximetry Q4H RT 05/11/21 20:05 Active Transfer Order Routine Transfer 05/11/21 Completed Code(s): H54.62 - UNQUALIFIED VISUAL LOSS, LEFT EYE, NORMAL VISION RIGHT EYE (2) TIA (transient ischemic attack) Current Visit: Yes Status: Acute Code(s): G45.9 - TRANSIENT CEREBRAL ISCHEMIC ATTACK, UNSPECIFIED
[2021-05-11] MEDS ORDERED: ROCEPHIN 1 Gm-D5w 50 ml Bag** 1 G/50 ML IVPB IV ONE (21:56)
[2021-05-12] MEDS ORDERED: Sodium Chloride 0.9% 1000 ML 1,000 ML ONE (03:53)
[2021-05-12] MEDS: Sodium Chloride 0.9% 1000 ML 1,000 ML IV SCH (03:53)
[2021-05-12] MEDS ORDERED: PROVENTIL 2.5 MG/3 ML NEB IH ONE (04:57)
[2021-05-12 05:06] LABS: Hematocrit 41.7 % (42-50); Hemoglobin 13.9 gm/dl (12.5-18.0); Mean Cell Volume 95.6 fl (78-100); Mean Corpuscular Hemoglobin 31.9 pg (26-32); Mean Corpuscular Hgb Concent. 33.3 g/dl (32-36); Mean Platelet Volume 8.6 fl (7.5-11.0); Platelet Count 215 K/mm3 (150-450); Red Blood Count 4.36 M/mm3 (4.1-5.6); White Blood Count 5.8 K/mm3 (4.0-10.5)
[2021-05-12 05:36] LABS: BLOOD UREA NITROGEN 14 mg/dL (9-20); CHLORIDE 106 mmol/L (98-107); Calcium 7.8 mg/dL (8.4-10.2); Carbon Dioxide 25 mmol/L (22-30); EST GLOMERULAR FILTRATION RATE > 60.0 ML/MIN; Glucose 80 mg/dL (74-106); PREALBUMIN 20.51 mg/dL (17.6-36.0); Potassium 3.8 mmol/L (3.5-5.1); SODIUM 136 mmol/L (137-145)
[2021-05-12 05:38] LABS: Risk Ratio 3.6
[2021-05-12] MEDS ORDERED: PATIENT OWN MEDICATION IH SCH ×3 (07:00→19:00)
[2021-05-12] MEDS ORDERED: PROVENTIL 2.5 MG/3 ML NEB IH SCH ×2 (07:00→10:00)
[2021-05-12] MEDS ORDERED: Advair Hfa 115/21 Common canister IH SCH (07:00)
[2021-05-12] MEDS ORDERED: PROVENTIL 2.5 MG/3 ML NEB IH PRN (07:03)
--- NOTE | 2021-05-12 08:42 | XRAY ---
Indication: Stroke. Left vision loss. Conventional contrast enhanced CTA neck performed using 80 cc Isovue 370 contrast. 2D sagittal and coronal reformatted images obtained. Additional 3-D reformatted images obtained using separate workstation. Comparison: None Visualized aortic arch is mildly arteriosclerotic with normal branching right brachiocephalic, left common carotid, and left subclavian arteries. Minimal eccentric calcifications in the right brachiocephalic and left subclavian arteries without critical stenosis/obstruction. Examination of the right carotid circulation demonstrates widely patent common carotid artery. Carotid bulb demonstrates minimal calcified plaquing. Origin external carotid artery demonstrates focal soft plaquing producing 80-90% stenosis. Distal internal carotid artery demonstrates minimal calcified plaquing. Examination of the left carotid circulation demonstrates widely patent common carotid artery. Carotid bulb demonstrates mild calcified plaquing. Extending into the origin/proximal internal carotid artery and lesser degree origin external carotid artery. Vertebral arteries are normal in CTA appearance. Left vertebral artery is slightly larger in caliber. Visualized soft tissues demonstrates a few tiny cervical lymph nodes. No pathologic lymphadenopathy. Thyroid gland enhances homogeneously. Supra/infra glottic airway widely patent. Lung apices demonstrates pulmonary emphysema. Osseous structures intact with osteopenia and mild/moderate multilevel cervical thoracic degenerative changes. Patient is edentulous. Impression: 1. Scattered arteriosclerotic plaquing bilaterally. Greatest extent origin right external carotid artery producing 80-90% stenosis. 2. Normal CTA vertebral arteries with dominant left vertebral artery. 3. Osteopenia, multilevel degenerative spondylosis, and pulmonary emphysema.
--- NOTE | 2021-05-12 08:46 | XRAY ---
Indication: Stroke. Left vision loss. Conventional contrast enhanced CTA head performed using 80 cc Isovue 370 contrast. 2D sagittal and coronal reformatted images obtained. Additional 3-D reformatted images obtained using separate workstation. Comparison: None Distal internal carotid arteries are bilaterally symmetric with mild scattered arteriosclerotic calcifications in both parasellar segments without critical stenosis/obstruction. Normal carotid terminus with normal branching A1 and M1 segments bilaterally. More distal anterior cerebral, middle cerebral, anterior communicating, and right posterior communicating arteries are normal in CTA appearance. Anatomic variant for origin left posterior cerebral artery. Basilar artery, right posterior cerebral, and left/right superior cerebellar arteries are normal in CTA appearance. No abnormal enhancing intra-or extra-axial mass. Venous sinuses and drainage unremarkable. Impression: Mild scattered arteriosclerotic calcifications both distal internal carotid arteries without critical stenosis/obstruction. Anatomic variant origin left posterior cerebral artery. Remaining CTA brain with contrast exam is negative.
[2021-05-12] MEDS ORDERED: ROCEPHIN 1 Gm-D5w 50 ml Bag** 1 G/50 ML IVPB IV SCH (10:00)
[2021-05-12] MEDS ORDERED: PLAVIX 75 MG Tablet PO SCH (14:00)
[2021-05-12] MEDS ORDERED: ECOTRIN 81 MG PO SCH (14:00)
--- NOTE | 2021-05-12 14:58 | XRAY ---
Indication: Stroke. Sagittal, coronal, and axial MRI brain performed without contrast using T1, T2, FLAIR, diffusion, and ADC sequences. Comparison: None Age-appropriate global atrophy and mild periventricular degenerative micro-ischemia signal bilaterally. Medial right occipital lobe demonstrates 2.0 x 2.1 cm focus of restricted signal favoring acute ischemia. Remaining diffusion images unremarkable. No acute intracranial hemorrhage, abnormal extra-axial fluid collection, or mass effect. Fourth ventricle is midline without hydrocephalus. 7/8 cranial nerve complex bilaterally symmetric. Normal flow-void signal within the major intracerebral circulation. Normal-appearing craniocervical junction and sella turcica. Paranasal sinuses are clear. Impression: 1. Small focus acute ischemia right occipital lobe. No acute hemorrhage/mass effect. 2. Atrophy and degenerative micro-ischemia within normal limits for patient's age.
[2021-05-12 15:40] VITALS: BP 184/86; PULSE 62; O2SAT 97
--- NOTE | 2021-05-12 17:22 | PCM.DS ---
Discharge Summary Date of Admission: 05/11/21 20:01 Admitting Physician: CHRIS DAVIS Consults: Consults on Case 05/11/21 16:51 Consult Neurology STAT 05/12/21 15:13 Consult Tele-Health [Tele-Health Consult] ROUTINE Primary Care Provider: CHRIS DAVIS Allergies Allergies No Known Drug Allergies Allergy (Verified 05/11/21 15:29) Hospital Summary - Hospital Course Hospital Course: Chief Complaint Diagnosis weakness for 1 day, loss of vision left eye Allergies Allergy/AdvReac Type Severity Reaction Status Date / Time No Known Drug Allergies Allergy Verified 05/11/21 15:29 Vital Signs (Last 24 hours) Temp Pulse Resp BP Pulse Ox 05/12/21 15:40 98.7 F 62 16 184/86 97 05/12/21 11:45 98.4 F 63 16 166/72 96 05/12/21 10:30 65 20 95 05/12/21 07:10 97.8 F 54 L 16 159/74 98 05/12/21 05:20 57 L 20 97 05/12/21 04:00 98.0 F 55 L 14 150/72 99 05/12/21 00:00 97.8 F 56 L 18 159/75 99 05/11/21 21:54 63 16 95 05/11/21 20:26 97.7 F 54 L 16 188/87 97 05/11/21 19:24 97 05/11/21 19:00 60 14 182/87 98 05/11/21 18:48 65 22 178/92 96 Home Medications Medication Instructions Recorded Confirmed Last Taken Type Aspirin EC 81 mg [Ecotrin 81 81 mg PO DAILY 30 Days #30 tab 05/12/21 Unknown Rx mg] Atorvastatin Calcium [Lipitor] 10 mg PO HS 30 Days #30 tablet 05/12/21 Unknown Rx Clopidogrel Bisulfate 75 mg 75 mg PO DAILY 30 Days #30 tablet 05/12/21 Unknown Rx [PLAVIX 75 MG Tablet] Lisinopril 10 mg [Zestril 10 10 mg PO HS 30 Days #30 tablet 05/12/21 Unknown Rx MG] Current Medications Generic Name Dose Route Start Last Admin Trade Name Freq PRN Reason Stop Dose Admin Acetaminophen 650 mg 05/11/21 20:05 Acetaminophen 325 Mg Tablet PO 06/10/21 20:04 Q4H PRN PRN PAIN AND/OR FEVER Al Hydrox/Mg Hydrox/Simethicone 30 ml 05/11/21 20:05 Mag Hydrox/Al Hydrox/Simeth 30 Ml Udcup PO 06/10/21 20:04 Q4H PRN PRN INDIGESTION Albuterol Sulfate 2.5 mg 05/12/21 07:03 Albuterol Sulfate 2.5 Mg/3 Ml Neb IH 06/11/21 07:01 Q4H PRN PRN SHORTNESS OF BREATH/WHEEZING Aspirin 81 mg 05/12/21 14:00 05/12/21 13:42 Aspirin 81 Mg Tablet.Ec PO 06/11/21 13:59 81 mg DAILY ROCAEL Administration Clopidogrel Bisulfate 75 mg 05/12/21 14:00 05/12/21 13:42 Clopidogrel Bisulfate 75 Mg Tablet PO 06/11/21 13:59 75 mg DAILY ROCAEL Administration Sodium Chloride 1,000 mls @ 100 mls/hr 05/11/21 15:30 05/12/21 03:53 Sodium Chloride 0.9% 1000 Ml IV 06/10/21 15:29 100 mls/hr .Q10H ROCAEL Administration Ceftriaxone Sodium/Dextrose 1 g in 50 mls @ 100 mls/hr 05/12/21 10:00 05/11/21 22:02 Rocephin 1 Gm-D5w 50 Ml Bag IV 05/15/21 09:59 100 mls/hr Q24H10 ROCAEL Administration Lisinopril 10 mg 05/12/21 22:00 Lisinopril 10 Mg Tablet PO 06/11/21 21:59 HS ROCAEL Magnesium Hydroxide 30 - 60 ml 05/11/21 20:05 Magnesium Hydroxide 30 Ml Udcup PO 06/10/21 20:04 QDP PRN CONSTIPATION Ondansetron HCl 4 mg 05/11/21 20:05 Ondansetron Hcl 4 Mg/2 Ml Vial IV 06/10/21 20:04 Q4H PRN PRN NAUSEA/VOMITING Combivent Respimat 1 each 05/12/21 19:00 Inhaler 06/11/21 18:59 BIDRT ROCAEL Fluticasone/Salmeterol 2 puff 05/12/21 07:00 05/12/21 05:23 Fluticasone/Salmeterol 115/21 - 120 Puff Common Canister 06/11/21 06:59 2 puff BIDRT ROCAEL Administration Senna/Docusate Sodium 2 udtab 05/11/21 20:05 Senna/Docusate Sodium 1 Udtab Tablet PO 06/10/21 20:04 BID PRN PRN CONSTIPATION Discontinued Medications Generic Name Dose Route Start Last Admin Trade Name Freq PRN Reason Stop Dose Admin Albuterol Sulfate 2.5 mg 05/12/21 07:00 Albuterol Sulfate 2.5 Mg/3 Ml [facility] 06/11/21 06:59 QIDRT ROCAEL Albuterol Sulfate Confirm 05/12/21 04:57 Albuterol Sulfate 2.5 Mg/3 Ml Neb Administered 05/12/21 04:58 Dose 2.5 mg IH .STK-MED ONE Albuterol Sulfate 2.5 mg 05/12/21 10:00 05/12/21 05:25 Albuterol Sulfate 2.5 Mg/3 Ml [facility] 06/11/21 09:59 2.5 mg BID ROCAEL Administration Aspirin 324 mg 05/11/21 19:23 05/12/21 10:59 Aspirin 81 Mg Tab.Chew PO 05/11/21 19:24 Not Given STAT ONE Aspirin Confirm 05/11/21 21:34 Aspirin 81 Mg Tablet.Ec Administered 05/11/21 21:35 Dose 243 mg PO .STK-MED ONE Aspirin Confirm 05/11/21 21:44 Aspirin 81 Mg Tablet.Ec Administered 05/11/21 21:45 Dose 81 mg PO .STK-MED ONE Aspirin 324 mg 05/11/21 21:52 05/11/21 21:59 Aspirin 81 Mg Tablet.Ec PO 05/11/21 21:53 324 mg 1XONLY ONE Administration Ceftriaxone Sodium/Dextrose Confirm 05/11/21 21:56 Rocephin 1 Gm-D5w 50 Ml Bag Administered 05/11/21 21:57 Dose 1 g in 50 mls @ ud IV .STK-MED ONE Sodium Chloride Confirm 05/12/21 03:53 Sodium Chloride 0.9% 1000 Ml Administered 05/12/21 03:54 Dose 1,000 mls @ ud .ROUTE .STK-MED ONE Combivent Respimat 1 each 05/12/21 10:00 05/12/21 10:59 20/100 IH 06/11/21 09:59 Not Given BID ROCAEL Intake & Output (Last 24 hours) 05/10/21 05/11/21 05/12/21 05/13/21 11:59 11:59 11:59 11:59 Intake Total 480 240 Balance 480 240 Weight 61 kg Microbiology Results (Last 24 hours) 05/11/21 17:40 Urine, Void Urine Culture - Pending Laboratory Results (Last 24 hours) 05/12/21 05/12/21 05/12/21 04:30 04:30 04:30 WBC 5.8 RBC 4.36 Hgb 13.9 Hct 41.7 L MCV 95.6 MCH 31.9 MCHC 33.3 RDW 13.0 Plt Count 215 MPV 8.6 Sodium 136 L Potassium 3.8 Chloride 106 Carbon Dioxide 25 Anion Gap 8.0 BUN 14 Creatinine 0.70 Estimated GFR > 60.0 Glucose 80 Calcium 7.8 L Troponin I Prealbumin 20.51 Triglycerides 67 Cholesterol 156 LDL Cholesterol 111 H HDL Cholesterol 43 Heart Disease Risk Ratio 3.6 Urinalys Dipstick Clnc Urine Color Urine Appearance Urine pH Ur Specific [place] POC Urine Protein Conf Urine Ketones Urine Nitrite Urine Bilirubin Urine Urobilinogen Urine Leukocytes Urine WBC (Auto) Urine RBC (Auto) U Epithel Cells (Auto) Urine Bacteria (Auto) Urine RBC Ur Culture Indicated? Urine Glucose Influenza Type A Ag Influenza Type B Ag RSV (PCR) SARS-CoV-2 (PCR) 05/11/21 05/11/21 05/11/21 21:40 18:21 17:40 WBC RBC Hgb Hct MCV MCH MCHC RDW Plt Count MPV Sodium Potassium Chloride Carbon Dioxide Anion Gap BUN Creatinine Estimated GFR Glucose Calcium Troponin I < 0.012 < 0.012 Prealbumin Triglycerides Cholesterol LDL Cholesterol HDL Cholesterol Heart Disease Risk Ratio Urinalys Dipstick Clnc MAIN LAB Urine Color YELLOW Urine Appearance CLEAR Urine pH 6.5 Ur Specific [place] 1.010 POC Urine Protein Conf NEGATIVE Urine Ketones NEGATIVE Urine Nitrite POSITIVE Urine Bilirubin NEGATIVE Urine Urobilinogen 0.2 Urine Leukocytes TRACE Urine WBC (Auto) 3-5 Urine RBC (Auto) NONE SEEN U Epithel Cells (Auto) RARE Urine Bacteria (Auto) RARE Urine RBC NEGATIVE Ur Culture Indicated? YES Urine Glucose NEGATIVE Influenza Type A Ag Influenza Type B Ag RSV (PCR) SARS-CoV-2 (PCR) 05/11/21 17:29 WBC RBC Hgb Hct MCV MCH MCHC RDW Plt Count MPV Sodium Potassium Chloride Carbon Dioxide Anion Gap BUN Creatinine Estimated GFR Glucose Calcium Troponin I Prealbumin Triglycerides Cholesterol LDL Cholesterol HDL Cholesterol Heart Disease Risk Ratio Urinalys Dipstick Clnc Urine Color Urine Appearance Urine pH Ur Specific [place] POC Urine Protein Conf Urine Ketones Urine Nitrite Urine Bilirubin Urine Urobilinogen Urine Leukocytes Urine WBC (Auto) Urine RBC (Auto) U Epithel Cells (Auto) Urine Bacteria (Auto) Urine RBC Ur Culture Indicated? Urine Glucose Influenza Type A Ag NEGATIVE Influenza Type B Ag NEGATIVE RSV (PCR) NEGATIVE SARS-CoV-2 (PCR) NEGATIVE Orders (Last 24 hours) Category Date Time Status Bedrest with BRP/BSC ROUTINE Activity 05/11/21 20:05 Active Code Status Order ROUTINE Care 05/11/21 20:05 Active IV Care Q6H Care 05/11/21 20:05 Active Implement Chest Pain Pathway ROUTINE Care 05/11/21 20:[address] in Observation ROUTINE Care 05/11/21 20:05 Active Micheal Serrato Apply ROUTINE Care 05/11/21 20:05 Active Telemetry q6h Care 05/11/21 20:05 Active Weight,Daily 0600 Care 05/11/21 20:05 Active Consult Neurology STAT Cons 05/11/21 16:51 Completed Consult Tele-Health [Tele-Health Consult] ROUTINE Cons 05/12/21 15:13 Active Heart-Healthy Diet Diet 05/12/21 Breakfast Active NPO Diet 05/12/21 00:01 Completed Discharge Routine Discharge 05/12/21 15:[address] ANGIOGRAPHY NECK [CT] Stat Exams 05/11/21 16:41 Completed CTA HEAD W AND/OR WO CONTRAST [CT] Stat Exams 05/11/21 16:40 Completed MRI BRAIN W/O CONTRAST [MRI] Urgent Exams 05/12/21 08:40 Completed BMP Routine Lab 05/11/21 20:59 Completed CBC Routine Lab 05/11/21 20:59 Completed CULTURE,URINE Stat Lab 05/11/21 17:40 Received LIPID PROFILE AM.LAB Lab 05/12/21 04:30 Completed PREALBUMIN Routine Lab 05/11/21 20:59 Completed TROPONIN Q3H Lab 05/11/21 18:21 Completed TROPONIN Q3H Lab 05/11/21 21:40 Completed Acetaminophen 325 mg [Tylenol 325 mg] Med 05/11/21 20:05 Active 650 mg PO Q4H PRN PRN Albuterol 2.5 mg/3 ml Neb [Proventil 2.5 mg/3 ml Neb Med 05/12/21 04:57 Discontinued ] 2.5 mg IH .STK-MED ONE Albuterol 2.5 mg/3 ml Neb [Proventil 2.5 mg/3 ml Neb Med 05/12/21 10:00 Discontinued ] 2.5 mg IH BID Albuterol 2.5 mg/3 ml Neb [Proventil 2.5 mg/3 ml Neb Med 05/12/21 07:03 Active ] 2.5 mg IH Q4H PRN PRN Albuterol 2.5 mg/3 ml Neb [Proventil 2.5 mg/3 ml Neb Med 05/12/21 07:00 Discontinued ] 2.5 mg IH QIDRT Aspirin 81 gm Chew [Baby Aspirin 81 mg Chew] Med 05/11/21 19:23 Discontinued 324 mg PO STAT ONE Aspirin EC 81 mg [Ecotrin 81 mg] Med 05/11/21 21:34 Discontinued 243 mg PO .STK-MED ONE Aspirin EC 81 mg [Ecotrin 81 mg] Med 05/11/21 21:52 Discontinued 324 mg PO 1XONLY ONE Aspirin EC 81 mg [Ecotrin 81 mg] Med 05/11/21 21:44 Discontinued 81 mg PO .STK-MED ONE Aspirin EC 81 mg [Ecotrin 81 mg] Med 05/12/21 14:00 Active 81 mg PO DAILY Ceftriaxone 1 GM/50 ML PREMIX* [ROCEPHIN 1 Gm-D5w 50 ml Med 05/12/21 10:00 Active Bag] 1 g in 50 ml IV Q24H10 Ceftriaxone 1 GM/50 ML PREMIX* [ROCEPHIN 1 Gm-D5w 50 ml Med 05/11/21 21:56 Discontinued Bag] 1 g in 50 ml IV UD Clopidogrel Bisulfate 75 mg [PLAVIX 75 MG Tablet] Med 05/12/21 14:00 Active 75 mg PO DAILY Fluticasone/Salmeterol 115/21 [Advair Hfa 115/21 Common Med 05/12/21 07:00 Active canister*] 2 puff IH BIDRT Lisinopril 10 mg [Zestril 10 MG] Med 05/12/21 22:00 Active 10 mg PO HS Mag Hydrox/Al Hydrox/Simeth [Maalox Es 30 ml Unit Med 05/11/21 20:05 Active Dose] 30 ml PO Q4H PRN PRN Magnesium Hydroxide 30 ml [Milk of Magnesia 30 ml Med 05/11/21 20:05 Active ] 30 - 60 ml PO QDP PRN NaCl 0.9% 1000 ml [Sodium Chloride 0.9% 1000 ML] 1,000 Med 05/12/21 03:53 Discontinued ml .ROUTE UD Ondansetron HCl 4 mg/2 ml [Zofran 4 MG/2 ML VIAL] Med 05/11/21 20:05 Active 4 mg IV Q4H PRN PRN Patient Own Med [Patient Own Medication] Med 05/12/21 10:00 Discontinued 1 each IH BID Patient Own Med [Patient Own Medication] Med 05/12/21 19:00 Active 1 each IH BIDRT Senna/Docusate Sodium Tab [Senokot-S Tablet] Med 05/11/21 20:05 Active 2 udtab PO BID PRN PRN Bardy 7-14 Day Holter ONCE RT 05/12/21 16:49 Completed EKG Q8HX2,QAMX3,PRN RT 05/11/21 20:05 Completed EKG ROUTINE RT 05/11/21 23:30 Completed EKG ROUTINE RT 05/12/21 05:00 Completed EKG ROUTINE RT 05/13/21 05:00 Active EKG ROUTINE RT 05/14/21 05:00 Active Oxygen Nasal Cannula 2 lpm RT 05/11/21 21:53 Active Pulse Oximetry .spot check RT 05/11/21 21:54 Active Pulse Oximetry Q4H RT 05/11/21 20:05 Completed Respiratory MDI UD RT 05/11/21 21:53 Active Respiratory MDI UD RT 05/12/21 04:06 Completed Respiratory Therapy Assessment DAILY RT 05/11/21 21:53 Active Patient Care Notes (Last 24 hours) 05/12/21 15:30 (created 05/12/21 15:45) Nursing Note by Kassy Tai I faxed patients labs, images, H&P to tele neuro for a follow up. Initialized on 05/12/21 15:45 - END OF NOTE I talked to tele neurology. will follow recommendations - Vitals & Intake/Output Vital Signs: Vital Signs Temperature 98.7 F 05/12/21 15:40 Pulse Rate 62 05/12/21 15:40 Respiratory Rate 16 05/12/21 15:40 Blood Pressure 184/86 05/12/21 15:40 O2 Sat by Pulse Oximetry 97 05/12/21 15:40 Intake & Output: Intake & Output 05/10/21 05/11/21 05/12/21 05/13/21 11:59 11:59 11:59 11:59 Intake Total 480 240 Balance 480 240 Weight 61 kg - Lab Result Diagrams: 05/12/21 04:30 05/12/21 04:30 Lab Results-Last 24 Hrs: Lab Results-Last 24 Hours 05/11/21 05/11/21 05/11/21 Range/Units 17:29 17:40 18:21 WBC (4.0-10.5) K/mm3 RBC (4.1-5.6) M/mm3 Hgb (12.5-18.0) gm/dl Hct (42-50) % MCV (78-100) fl MCH (26-32) pg MCHC (32-36) g/dl RDW (11.5-14.0) % Plt Count (150-450) K/mm3 MPV (7.5-11.0) fl Sodium (137-145) mmol/L Potassium (3.5-5.1) mmol/L Chloride (98-107) mmol/L Carbon Dioxide (22-30) mmol/L Anion Gap (5-15) MEQ/L BUN (9-20) mg/dL Creatinine (0.66-1.25) mg/dL Estimated GFR ML/MIN Glucose (74-106) mg/dL Calcium (8.4-10.2) mg/dL Troponin I < 0.012 (0.000-0.034) ng/mL Prealbumin (17.6-36.0) mg/dL Triglycerides (30-150) mg/dL Cholesterol (50-200) mg/dL LDL Cholesterol (30-100) mg/dL HDL Cholesterol (40-60) mg/dL Heart Disease Risk Ratio Urinalys Dipstick Clnc MAIN LAB Urine Color YELLOW (YELLOW) Urine Appearance CLEAR (CLEAR) Urine pH 6.5 (5-6) Ur Specific [place] 1.010 (1.005-1.025) POC Urine Protein Conf NEGATIVE (Negative) Urine Ketones NEGATIVE (NEGATIVE) Urine Nitrite POSITIVE (NEGATIVE) Urine Bilirubin NEGATIVE (NEGATIVE) Urine Urobilinogen 0.2 (0-1) mg/dL Urine Leukocytes TRACE (NEGATIVE) Urine WBC (Auto) 3-5 (0-5) /HPF Urine RBC (Auto) NONE SEEN (0-2) /HPF U Epithel Cells (Auto) RARE (FEW) /HPF Urine Bacteria (Auto) RARE (NEGATIVE) /HPF Urine RBC NEGATIVE (0-5) Sukhwinder/ul Ur Culture Indicated? YES Urine Glucose NEGATIVE (NEGATIVE) mg/dL Influenza Type A Ag NEGATIVE (NEGATIVE) Influenza Type B Ag NEGATIVE (NEGATIVE) RSV (PCR) NEGATIVE (Negative) SARS-CoV-2 (PCR) NEGATIVE (NEGATIVE) 05/11/21 05/12/21 05/12/21 Range/Units 21:40 04:30 04:30 WBC 5.8 (4.0-10.5) K/mm3 RBC 4.36 (4.1-5.6) M/mm3 Hgb 13.9 (12.5-18.0) gm/dl Hct 41.7 L (42-50) % MCV 95.6 (78-100) fl MCH 31.9 (26-32) pg MCHC 33.3 (32-36) g/dl RDW 13.0 (11.5-14.0) % Plt Count 215 (150-450) K/mm3 MPV 8.6 (7.5-11.0) fl Sodium 136 L (137-145) mmol/L Potassium 3.8 (3.5-5.1) mmol/L Chloride 106 (98-107) mmol/L Carbon Dioxide 25 (22-30) mmol/L Anion Gap 8.0 (5-15) MEQ/L BUN 14 (9-20) mg/dL Creatinine 0.70 (0.66-1.25) mg/dL Estimated GFR > 60.0 ML/MIN Glucose 80 (74-106) mg/dL Calcium 7.8 L (8.4-10.2) mg/dL Troponin I < 0.012 (0.000-0.034) ng/mL Prealbumin 20.51 (17.6-36.0) mg/dL Triglycerides (30-150) mg/dL Cholesterol (50-200) mg/dL LDL Cholesterol (30-100) mg/dL HDL Cholesterol (40-60) mg/dL Heart Disease Risk Ratio Urinalys Dipstick Clnc Urine Color (YELLOW) Urine Appearance (CLEAR) Urine pH (5-6) Ur Specific [place] (1.005-1.025) POC Urine Protein Conf (Negative) Urine Ketones (NEGATIVE) Urine Nitrite (NEGATIVE) Urine Bilirubin (NEGATIVE) Urine Urobilinogen (0-1) mg/dL Urine Leukocytes (NEGATIVE) Urine WBC (Auto) (0-5) /HPF Urine RBC (Auto) (0-2) /HPF U Epithel Cells (Auto) (FEW) /HPF Urine Bacteria (Auto) (NEGATIVE) /HPF Urine RBC (0-5) Sukhwinder/ul Ur Culture Indicated? Urine Glucose (NEGATIVE) mg/dL Influenza Type A Ag (NEGATIVE) Influenza Type B Ag (NEGATIVE) RSV (PCR) (Negative) SARS-CoV-2 (PCR) (NEGATIVE) 05/12/21 Range/Units 04:30 WBC (4.0-10.5) K/mm3 RBC (4.1-5.6) M/mm3 Hgb (12.5-18.0) gm/dl Hct (42-50) % MCV (78-100) fl MCH (26-32) pg MCHC (32-36) g/dl RDW (11.5-14.0) % Plt Count (150-450) K/mm3 MPV (7.5-11.0) fl Sodium (137-145) mmol/L Potassium (3.5-5.1) mmol/L Chloride (98-107) mmol/L Carbon Dioxide (22-30) mmol/L Anion Gap (5-15) MEQ/L BUN (9-20) mg/dL Creatinine (0.66-1.25) mg/dL Estimated GFR ML/MIN Glucose (74-106) mg/dL Calcium (8.4-10.2) mg/dL Troponin I (0.000-0.034) ng/mL Prealbumin (17.6-36.0) mg/dL Triglycerides 67 (30-150) mg/dL Cholesterol 156 (50-200) mg/dL LDL Cholesterol 111 H (30-100) mg/dL HDL Cholesterol 43 (40-60) mg/dL Heart Disease Risk Ratio 3.6 Urinalys Dipstick Clnc Urine Color (YELLOW) Urine Appearance (CLEAR) Urine pH (5-6) Ur Specific [place] (1.005-1.025) POC Urine Protein Conf (Negative) Urine Ketones (NEGATIVE) Urine Nitrite (NEGATIVE) Urine Bilirubin (NEGATIVE) Urine Urobilinogen (0-1) mg/dL Urine Leukocytes (NEGATIVE) Urine WBC (Auto) (0-5) /HPF Urine RBC (Auto) (0-2) /HPF U Epithel Cells (Auto) (FEW) /HPF Urine Bacteria (Auto) (NEGATIVE) /HPF Urine RBC (0-5) Sukhwinder/ul Ur Culture Indicated? Urine Glucose (NEGATIVE) mg/dL Influenza Type A Ag (NEGATIVE) Influenza Type B Ag (NEGATIVE) RSV (PCR) (Negative) SARS-CoV-2 (PCR) (NEGATIVE) - Radiology Exams Ordered Rad Exams-Entire Visit: Radiology Procedures Category Date Time Status CT ANGIOGRAPHY NECK [CT] Stat Exams 05/11/21 16:41 Completed CTA HEAD W AND/OR WO CONTRAST [CT] Stat Exams 05/11/21 16:40 Completed HEAD WITHOUT CONTRAST [CT] Routine Exams 05/11/21 15:25 Completed MRI BRAIN W/O CONTRAST [MRI] Urgent Exams 05/12/21 08:40 Completed MRI/MRI BRAIN W/O CONTRAST Indication: Stroke. Sagittal, coronal, and axial MRI brain performed without contrast using T1, T2, FLAIR, diffusion, and ADC sequences. Comparison: None Age-appropriate global atrophy and mild periventricular degenerative micro-ischemia signal bilaterally. Medial right occipital lobe demonstrates 2.0 x 2.1 cm focus of restricted signal favoring acute ischemia. Remaining diffusion images unremarkable. No acute intracranial hemorrhage, abnormal extra-axial fluid collection, or mass effect. Fourth ventricle is midline without hydrocephalus. 7/8 cranial nerve complex bilaterally symmetric. Normal flow-void signal within the major intracerebral circulation. Normal-appearing craniocervical junction and sella turcica. Paranasal sinuses are clear. Impression: 1. Small focus acute ischemia right occipital lobe. No acute hemorrhage/mass effect. 2. Atrophy and degenerative micro-ischemia within normal - Procedures and Test Procedures and Tests throughout Hospitalization: Therapy Orders & Screens 05/11/21 20:05 EKG Q8HX2,QAMX3,PRN Comment: 05/11/21 21:53 Oxygen Nasal Cannula 2 lpm Comment: Diagnosis: weakness for 1 day, loss of vision left eye Respiratory MDI UD Comment: Diagnosis: weakness for 1 day, loss of vision left eye Respiratory Therapy Assessment DAILY Comment: Diagnosis: weakness for 1 day, loss of vision left eye 05/11/21 23:30 EKG ROUTINE Comment: Diagnosis: weakness for 1 day, loss of vision left eye 05/12/21 04:06 Respiratory MDI UD Comment: Diagnosis: weakness for 1 day, loss of vision left eye 05/12/21 05:00 EKG ROUTINE Comment: Diagnosis: weakness for 1 day, loss of vision left eye 05/12/21 16:49 Zoila 7-14 Day Holter ONCE Comment: 14 DAY ZOILA, DX STROKE Diagnosis: weakness for 1 day, loss of vision left eye 05/13/21 05:00 EKG ROUTINE Comment: Diagnosis: weakness for 1 day, loss of vision left eye 05/14/21 05:00 EKG ROUTINE Comment: Diagnosis: weakness for 1 day, loss of vision left eye Discharge Exam General Appearance: no apparent distress, alert Neurologic Exam: alert, oriented x 3, cooperative, normal mood/affect, nml cerebellar function, sensation nml, No motor deficits Eye Exam: PERRL, EOMI, eyes nml inspection Ears, Nose, Throat Exam: normal ENT inspection, pharynx normal, moist mucous membranes Neck Exam: normal inspection, non-tender, supple, full range of motion Respiratory Exam: normal breath sounds, lungs clear, No respiratory distress Cardiovascular Exam: regular rate/rhythm, normal heart sounds Gastrointestinal/Abdomen Exam: soft, No tenderness, No mass Male Genitalia Exam: deferred Rectal Exam: deferred Back Exam: normal inspection, normal range of motion, No CVA tenderness, No vertebral tenderness Extremity Exam: normal inspection, normal range of motion Skin Exam: normal color, warm, dry Wound Assessment: Skin/Wound Assessment Wound/Incision Assessment Start: 05/11/21 20:59 Text: Status: Active Freq: Q6H Protocol: Document 05/12/21 14:00 KAYKRIS (Rec: 05/12/21 14:08 DEBO [id number]) Wound/Incision Assessment Right Arm Wound Assessment Shift Assessment Wound Type Laceration Wound Stage Non Pressure Wound Drainage Amount None Drainage Odor None/Absent General Appearance Clean/Dry Surrounding Tissue [place] Primary Dressing OPEN TO AIR Wound Photo Photo Taken No Final Diagnosis/Problem List - Final Discharge Diagnosis/Problem (1) Vision loss, left eye Current Visit: Yes Status: Acute Priority: High Code(s): H54.62 - UNQUALIFIED VISUAL LOSS, LEFT EYE, NORMAL VISION RIGHT EYE (2) TIA (transient ischemic attack) Current Visit: Yes Status: Acute Priority: High Code(s): G45.9 - TRANSIENT CEREBRAL ISCHEMIC ATTACK, UNSPECIFIED (3) HTN (hypertension) Current Visit: Yes Status: Acute Code(s): I10 - ESSENTIAL (PRIMARY) HYPERTENSION (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 Current Visit: Yes Status: Acute Code(s): I63.441 - CEREBRAL INFARCTION DUE TO EMBOLISM OF RIGHT CEREBLR ARTERY - Discharge Discharge Date: 05/12/21 Disposition: Home, Self-Care Condition: Stable Prescriptions: New Aspirin EC 81 mg [Ecotrin 81 mg] 81 mg PO DAILY 30 Days #30 tab Clopidogrel Bisulfate 75 mg [PLAVIX 75 MG Tablet] 75 mg PO DAILY 30 Days #30 tablet Lisinopril 10 mg [Zestril 10 MG] 10 mg PO HS 30 Days #30 tablet Atorvastatin Calcium [Lipitor] 10 mg PO HS 30 Days #30 tablet Continue Albuterol 2.5 mg/3 ml Neb [Proventil 2.5 mg/3 ml Neb] 1 puff QID Fluticasone/Salmeterol [Advair 100-50 Diskus] 1 each IH BID Ipratropium/Albuterol Sulfate [Combivent Respimat Common Canister] 1 puff IH BID Outpatient Orders: ECHO W/2D AND DOPPLER Time Frame: 05/18/21, Facility: [facility]. Hosp, Location: RADIOLOGY Holter Monitor Facility: [facility]. Hosp, Location: RESPIRATORY THERAPY Instructions: Stroke (DC), Carotid Artery Stenosis (DC) Follow up with: JEREMY MIGUEL [NON-STAFF PHY W/O PRIVILEGES] - (THE OFFICE WILL CALL YOU AT HOME WITH AN APPOINTMENT) CHRIS DAVIS MD [Primary Care Provider] - 05/19/21 11:15 am ( ) Forms: Discharge Instructions, Outpatient Follow-up Labs/Proc, Work/School Release Form
[2021-05-12] MEDS ORDERED: Zestril 10 MG PO SCH (22:00)
== END 2021-05-12 17:30 | disposition home or self-care (01) ==
LOC: ED 15:12 → MED SURG 20:01
PROVIDERS: ADMIT General Practice; ATTEND General Practice
DX: H54.62 Unqualified visual loss, left eye, normal vision right eye (principal); G45.9 Transient cerebral ischemic attack, unspecified; I10 Essential (primary) hypertension; I63.441 Cerebral infarction due to embolism of right cerebellar artery; Z79.899 Other long term (current) drug therapy; I67.82 Cerebral ischemia; Z20.828 Contact with and (suspected) exposure to other viral communicable diseases
CPT/HCPCS: 0241U; 36000; 36415; 70450; 70496; 70498; 70551; 80048; 80053; 80061; 81015; 83721; 84134; 84484; 85025; 85027; 85610; 85730; 87086; 93005; 93041; 93246; 94640; 94760; 99284; 93268; J0696; J7609; A9270-GY; G0378

== ENCOUNTER 2022-07-05 20:01 | Emergency (ER) | payer MEDICARE ==
[2022-07-05] MEDS ORDERED: DELTASONE 20 MG PO ONE (20:12)
[2022-07-05] MEDS ORDERED: DUONEB 0.5-3 MG/3 ml Neb IH ONE ×2 (20:12→20:22)
[2022-07-05] MEDS ORDERED: Zithromax 250 MG TABLET PO ONE (20:19)
--- NOTE | 2022-07-05 20:25 | ERPHSYRPT ---
- History of Present Illness Time Seen by Provider: 07/05/22 20:10 Source: patient, family Exam Limitations: no limitations Patient Subjective Stated Complaint: cough, matted eyes Triage Nursing Assessment: Pt ambulated into ER without diff, son at bedside. Pt c/o cough x3 weeks. Pt saw Dr. Davis in the office 3 weeks ago and his paperwork stated "bronchitis", but pt wasn't given anything for it. Pt lungs lora wheezy throughout bilat ant/post. Pt has prod cough at times, thick, yellow sputum. Pt has sob at times. Both eyes have been matting shut since Sunday. Physician History: 82-year-old male presents emergency room with a 3-week history of productive cough and shortness of breath. He was seen by his primary care provider who diagnosed him with bronchitis, no new medications were given at this time. Since his visit patient reports increased sputum production that is dark green in color and his shortness of breath is increased over this period as well. He reports using his albuterol inhaler up to 10 times per day. He is on no maintenance inhaler. Patient denies fever, but has chills. He reports no chest pain, swelling, abdominal pain. Patient also reports that his eyes have been matted shut with green purulent discharge for the past 2 days. No eye pain reported. Timing/Duration: week(s) (3), gradual onset Cough Quality/Degree: severe, productive cough, sputum Possible Cause: chronic episodes Modifying Factors: Improves With: albuterol inhaler. Worsens With: activity, coughing, exertion Associated Symptoms: fever, chills, cough, nasal congestion, nasal drainage, shortness of breath, wheezing Allergies/Adverse Reactions: No Known Drug Allergies Allergy (Verified 05/11/21 15:29) Home Medications: Albuterol 2.5 mg/3 ml Neb [Proventil 2.5 mg/3 ml Neb] 2 puff IH QID 01/23/12 [History] Ipratropium/Albuterol Sulfate [Combivent Respimat Common Canister] 1 puff IH QID 03/26/16 [History] Fluticasone Propion/Salmeterol [Wixela 500-50 Inhub] 1 puff IH BID 07/05/22 [History] Lisinopril 10 mg [Zestril 10 MG] 10 mg PO DAILY 07/05/22 [History] Hx Tetanus, Diphtheria Vaccination/Date Given: Yes Hx Influenza Vaccination/Date Given: No Hx Pneumococcal Vaccination/Date Given: (unknown) Travel Risk - International Travel Have you traveled outside of the country in past 3 weeks: No - Coronavirus Screening Are you exhibiting any of the following symptoms?: Yes Symptoms: Cough: New Onset, Shortness of Breath Close contact with a COVID-19 positive Pt in past 14-21 Days: No - Vaccine Status Have you recieved a Covid-19 vaccination: Yes 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 - Review of Systems Constitutional: Fever, Chills Eyes: Discharge, Eye Redness, Tearing Ears, Nose, & Throat: No Symptoms Respiratory: Cough, Dyspnea, Dyspnea on Exertion (ARMENTA), Wheezing Cardiac: No Symptoms Abdominal/Gastrointestinal: No Symptoms Genitourinary Symptoms: No Symptoms Musculoskeletal: No Symptoms Skin: No Symptoms Neurological: No Symptoms Psychological: No Symptoms - Past Medical History Pertinent Past Medical History: Yes Neurological History: Stroke ENT History: Cataracts, Other Cardiac History: Aneurysm Respiratory History: Bronchitis, COPD Endocrine Medical History: No Pertinent History Musculoskeletal History: Arthritis, Fractures GI Medical History: No Pertinent History History: No Pertinent History, Other Psycho-Social History: No Pertinent History Male Reproductive Disorders: Prostate Problems Other Medical History: abdominal anurysem. wears 2L oxygen at night - Past Surgical History Past Surgical History: Yes Neuro Surgical History: No Pertinent History Cardiac: No Pertinent History Respiratory: No Pertinent History Gastrointestinal: No Pertinent History Genitourinary: Other Musculoskeletal: Orthopedic Surgery, Other Male Surgical History: No Pertinent History Other Surgical History: kidney stone removed, transposition of left ulnar nerve. rotator cuff repair of left shoulder; copd - Social History Smoking Status: Former smoker Exposure to second hand smoke: No Drug Use: none Patient Lives Alone: Yes - Nursing Vital Signs Nursing Vital Signs: Initial Vital Signs Pulse Rate 110 H 07/05/22 20:01 Respiratory Rate 24 07/05/22 20:01 Blood Pressure 141/82 07/05/22 20:01 O2 Sat by Pulse Oximetry 95 07/05/22 20:01 Pain Scale Pain Intensity 0 - Physical Exam General Appearance: no apparent distress, thin Eye Exam: PERRL/EOMI, other (b/l purulent d/c, erythematous conjunctiva) Ears, Nose, Throat Exam: normal ENT inspection, dry mucous membranes, No pharyngeal erythema Neck Exam: normal inspection, non-tender, supple, full range of motion Respiratory Exam: airway intact, diminished breath sounds, wheezing, No respiratory distress Cardiovascular Exam: regular rate/rhythm, normal heart sounds, capillary refill <2 sec, No edema Gastrointestinal/Abdomen Exam: soft, normal bowel sounds, No tenderness Extremity Exam: normal inspection, No swelling, No tenderness Neurologic Exam: alert, oriented x 3, cooperative Skin Exam: normal color, warm, dry SpO2 Interpretation: normal SpO2: 95 O2 Delivery: Room Air - Course Nursing assessment & vital signs reviewed: Yes - Radiology Exams Chest X-ray Interpretation: Interpreted by me, Pneumonia (atypical]) Ordered Tests: Active Orders 24 hr Category Date Time Status CHEST 2 VIEWS (PA AND LAT) Stat Exams 07/05/22 20:15 Taken Respiratory Therapy Assessment DAILY RT 07/05/22 20:37 Completed Medication Summary Discontinued Medications Generic Name Dose Route Start Last Admin Trade Name Pawan PRN Reason Stop Dose Admin Albuterol/Ipratropium 3 ml 07/05/22 20:12 07/05/22 20:25 Ipratropium/Albuterol Sulfate 3 Ml Ampul.Neb IH 07/05/22 20:13 3 ml STAT ONE Administration Albuterol/Ipratropium Confirm 07/05/22 20:22 Ipratropium/Albuterol Sulfate 3 Ml Ampul.Neb Administered 07/05/22 20:23 Dose 3 ml IH .STK-MED ONE Azithromycin 500 mg 07/05/22 20:19 07/05/22 20:57 Azithromycin 250 Mg Tablet PO 07/05/22 20:20 500 mg STAT ONE Administration Azithromycin Confirm 07/05/22 20:57 Azithromycin 250 Mg Tablet Administered 07/05/22 20:58 Dose 500 mg .ROUTE .STK-MED ONE Prednisone 60 mg 07/05/22 20:12 07/05/22 20:58 Prednisone 20 Mg Tablet PO 07/05/22 20:13 60 mg STAT ONE Administration Prednisone Confirm 07/05/22 20:57 Prednisone 20 Mg Tablet Administered 07/05/22 20:58 Dose 60 mg .ROUTE .STK-MED ONE Lab/Rad Data: Laboratory Results 07/05/22 Range/Units 20:25 Influenza Type A Ag NEGATIVE (NEGATIVE) Influenza Type B Ag NEGATIVE (NEGATIVE) RSV (PCR) NEGATIVE (NEGATIVE) SARS-CoV-2 (PCR) NEGATIVE (NEGATIVE) - Progress Progress: improved Air Movement: fair Progress Note: Patient has atypical pneumonia with COPD exacerbation. He was given 60 mg of oral prednisone and 500 mg of azithromycin in the emergency room today as well as DuoNeb. He noticed improvement after the interventions. Advised patient to continue his home maintenance inhaler and the Combivent inhaler as needed as well as 4 days of 50 mg of prednisone and 4 days of 250 mg of azithromycin. Patient needs to follow-up with PCP prior to completion of these medications to see if further interventions need to be performed. Blood Culture(s) Obtained: No Antibiotics given: Yes Counseled pt/family regarding: lab results, diagnosis, need for follow-up, rad results Medical Desision Making - Diagnostic Testing Diagnostic test were ordered, analyzed, and reviewed by me: Yes Radiological Interpretation: Interpreted by me - Risk of complications The pt has a mod risk of morbidity or mortality based on: Need for prescription drug management - Departure Departure Disposition: Home Clinical Impression: COPD exacerbation, Bacterial conjunctivitis of both eyes Condition: Good Critical Care Time: No Referrals: CHRIS DAVIS MD [Primary Care Provider] - Follow up/PCP as directed Instructions: Conjunctivitis (Pinkeye) (DC), Exacerbation of COPD (DC) Prescriptions: Polymyxin B Sulf/Trimethoprim [Polytrim Eye Drops] 1 drop OP Q3H #1 amp predniSONE [Prednisone] 50 mg PO DAILY #4 tablet Azithromycin 250 mg [Zithromax 250 MG TABLET] 250 mg PO DAILY #4 tablet
[2022-07-05] MEDS ORDERED: DELTASONE 20 MG ONE (20:57)
[2022-07-05] MEDS ORDERED: Zithromax 250 MG TABLET ONE (20:57)
[2022-07-05 21:03] LABS: INFLUENZA A NEGATIVE (NEGATIVE); INFLUENZA B NEGATIVE (NEGATIVE); RESPIRATORY SYNCTIAL VIRUS NEGATIVE (NEGATIVE); SARS-CoV-2 Xpert Express NEGATIVE (NEGATIVE)
[2022-07-05 22:02] VITALS: BP 128/65; PULSE 98
[2022-07-06 03:25] VITALS: O2SAT 95
--- NOTE | 2022-07-06 08:34 | XRAY ---
Indication: Cough and short of breath. Comparison: June 01, 2022 PA/lateral chest again hyperinflated with minimal bibasilar discoid atelectasis/scarring and a few tiny bilateral calcified granulomas. No focal infiltrate, consolidation, or large effusion. Heart not enlarged. Bony thorax intact again with osteopenia and mild degenerative changes. Impression: Continued nonacute hyperinflated chest with chronic features.
== END 2022-07-05 22:01 | disposition home or self-care (01) ==
LOC: ED 20:01
DX: J44.1 Chronic obstructive pulmonary disease with (acute) exacerbation (principal); H10.89 Other conjunctivitis; R05.9 Cough, unspecified; R06.02 Shortness of breath; Z79.52 Long term (current) use of systemic steroids; Z79.899 Other long term (current) drug therapy; Z20.828 Contact with and (suspected) exposure to other viral communicable diseases
CPT/HCPCS: 0241U; 71046; 94640; 99283; A9270-GY

== ENCOUNTER 2022-07-14 11:23 | Emergency (ER) | payer MEDICARE ==
--- NOTE | 2022-07-14 11:26 | ERPHSYRPT ---
- History of Present Illness Time Seen by Provider: 07/14/22 11:26 Source: patient, family Exam Limitations: no limitations Physician History: This is an 82-year-old white male patient of Dr. Davis and presents with bilateral eye redness and global conjunctival swelling with associated pins and needle type pain in both eyes. Patient was seen here on 07/05/2022. He was treated for cough and given a prescription for prednisone and azithromycin. He also had conjunctivitis at that time and was started on Polytrim antibiotic eyedrops. 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 Patient has oxygen dependent COPD, hypertension and abdominal aortic aneurysm. Patient is on Plavix. His symptoms are actually worse per his and his son's report. The patient is here for reevaluation. Timing/Duration: day(s) (8), worse Location: bilateral eyes (To moderate) Severity: mild Associated Symptoms: pain, burning, redness, matting Visual Assistive Devices: None Chemical Exposure: No Trauma: No Welding Arc/Tanning Bed Exposure: No Allergies/Adverse Reactions: No Known Drug Allergies Allergy (Verified 07/14/22 11:44) Home Medications: Albuterol 2.5 mg/3 ml Neb [Proventil 2.5 mg/3 ml Neb] 2 puff IH QID 01/23/12 [History] Ipratropium/Albuterol Sulfate [Combivent Respimat Common Canister] 1 puff IH QID 03/26/16 [History] Fluticasone Propion/Salmeterol [Wixela 500-50 Inhub] 1 puff IH BID 07/05/22 [History] Lisinopril 10 mg [Zestril 10 MG] 10 mg PO DAILY 07/05/22 [History] Hx Tetanus, Diphtheria Vaccination/Date Given: Yes Hx Influenza Vaccination/Date Given: No Hx Pneumococcal Vaccination/Date Given: (unknown) Travel Risk - International Travel Have you traveled outside of the country in past 3 weeks: No - Coronavirus Screening Are you exhibiting any of the following symptoms?: No Close contact with a COVID-19 positive Pt in past 14-21 Days: No - Vaccine Status Have you recieved a Covid-19 vaccination: Yes 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 - Review of Systems Constitutional: No Symptoms Eyes: Discharge, Eye Pain, Eye Redness, Tearing Ears, Nose, & Throat: No Symptoms Respiratory: No Symptoms Cardiac: No Symptoms Abdominal/Gastrointestinal: No Symptoms Genitourinary Symptoms: No Symptoms Musculoskeletal: No Symptoms Skin: No Symptoms Neurological: No Symptoms Psychological: No Symptoms Endocrine: No Symptoms Hematologic/Lymphatic: No Symptoms Immunological/Allergic: No Symptoms All Other Systems: Reviewed and Negative - Past Medical History Pertinent Past Medical History: Yes Neurological History: Stroke ENT History: Cataracts, Other Cardiac History: Aneurysm Respiratory History: Bronchitis, COPD Endocrine Medical History: No Pertinent History Musculoskeletal History: Arthritis, Fractures GI Medical History: No Pertinent History History: No Pertinent History, Other Psycho-Social History: No Pertinent History Male Reproductive Disorders: Prostate Problems Other Medical History: abdominal anurysem. wears 2L oxygen at night - Past Surgical History Past Surgical History: Yes Neuro Surgical History: No Pertinent History Cardiac: No Pertinent History Respiratory: No Pertinent History Gastrointestinal: No Pertinent History Genitourinary: Other Musculoskeletal: Orthopedic Surgery, Other Male Surgical History: No Pertinent History Other Surgical History: kidney stone removed, transposition of left ulnar nerve. rotator cuff repair of left shoulder; copd - Social History Smoking Status: Former smoker Exposure to second hand smoke: No Drug Use: none Patient Lives Alone: Yes - Nursing Vital Signs Nursing Vital Signs: Initial Vital Signs Temperature 97.6 F 07/14/22 11:29 Pulse Rate 73 07/14/22 11:29 Blood Pressure 147/78 07/14/22 11:29 O2 Sat by Pulse Oximetry 99 07/14/22 11:29 Pain Scale Pain Intensity 7 - Physical Exam General Appearance: no apparent distress, alert Eye Exam: bilateral eye: PERRL, EOMI, conjunctival inflammation, other (Conjunctival inflammation, redness and edema) Ears, Nose, Throat Exam: normal ENT inspection, moist mucous membranes Neck Exam: normal inspection, non-tender, supple, full range of motion Respiratory Exam: normal breath sounds, lungs clear, airway intact, No chest tenderness, No respiratory distress Cardiovascular Exam: regular rate/rhythm, normal heart sounds, normal peripheral pulses Gastrointestinal Exam: soft, normal bowel sounds, No tenderness Extremity Exam: normal inspection, normal range of motion, pelvis stable Neurologic: alert, oriented x 3, cooperative, 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 He does not require any laboratory or radiographic studies. The patient has conjunctival inflammation, conjunctival edema and uveitis. This is despite treatment with azithromycin, prednisone and Polytrim eyedrops that he has been using for approximately 8 days without benefit. In fact, the patient states his symptoms are worse. Therefore, we contacted Dr. Salamanca an product analyst in the [facility]. They have a walk-in clinic until 4 PM. The patient underwent a medical screening exam and patient was given the directions to the product analyst facility. He will follow-up with them Counseled pt/family regarding: diagnosis, need for follow-up Medical Desision Making - Independent Historian Additional History obtained from: Child (Son) - Diagnostic Testing Diagnostic test were ordered, analyzed, and reviewed by me: No - Risk of complications Low Risk: Low risk of morbidity from additional dx testing or treatment - Departure Departure Disposition: Home Clinical Impression: Inflammation of conjunctiva, Conjunctival edema of both eyes, Encounter for medical screening examination Condition: Stable Critical Care Time: No Referrals: CHRIS DAVIS MD [Primary Care Provider] - Follow up/PCP as directed Additional Instructions: Go directly to the product analyst office using the directions provided. Hold on your antibiotics, steroids and eyedrops.
[2022-07-14 12:23] VITALS: BP 120/71; PULSE 61; O2SAT 98
== END 2022-07-14 12:30 | disposition home or self-care (01) ==
LOC: ED 11:23
DX: H11.423 Conjunctival edema, bilateral (principal); H11.89 Other specified disorders of conjunctiva; H57.13 Ocular pain, bilateral; I10 Essential (primary) hypertension; Z79.02 Long term (current) use of antithrombotics/antiplatelets; Z79.899 Other long term (current) drug therapy
CPT/HCPCS: 99281